=== PATIENT | male | born 1970 | race Caucasian/White ===

== ENCOUNTER 2020-06-23 08:25 | Emergency (ER) | payer OTHER, SELFPAY ==
--- NOTE | ~2020-06-23 | XR_ITS ---
EXAMINATION: XR chest 2V DATE: 06/23/2020 09:13 INDICATION: Cough and congestion TECHNIQUE: PA and lateral views of the chest were obtained. COMPARISON: Chest radiograph dated 05/03/2019 FINDINGS: The lungs remain clear with no focal airspace opacities, pulmonary edema, pleural effusion or pneumot horax. The cardiomediastinal silhouette is normal. Mild thoracic spondylosis. IMPRESSION: 1. No acute cardiopulmonary disease. Reviewed, dictated and finalized at location A. PROCESS TECHNICIAN
[2020-06-23 08:40] VITALS: BP 126/68; PULSE 95; RESP 16; TEMP 36.7; O2SAT 99
--- NOTE | 2020-06-23 08:59 | ED.GENADULT ---
HPI - General Adult General Chief complaint: Upper Respiratory Infection Stated complaint: COUGH/TIGHT CHEST/NASAL CONGESTION Source: patient Mode of arrival: ambulatory Limitations: no limitations History of Present Illness HPI narrative: Patient presents for evaluation of respiratory symptoms for the last 3 days. Reports productive cough of clear sputum with mild intermittent shortness of breath, sinus congestion, green rhinorrhea, a tickle in the throat , chills, fatigue, chest tightness and body aches. He denies fever, nausea, vomiting, diarrhea. States he was told in the past he has mild COPD. His and son both have similar symptoms. He states that they were evaluated here in both of the rapid Covid test were negative. He does smoke 1 pack/day. He has been using Sally, Flonase, NyQuil to assist with his symptoms. Related Data Home Medications Medication Instructions Recorded Confirmed alprazolam 05/03/19 gabapentin 05/03/19 pantoprazole 40 mg PO DAILY 05/03/19 06/23/20 sertraline 100 mg PO DAILY 05/03/19 06/23/20 tramadol 50 mg PO Q4-6H PRN 05/03/19 06/23/20 Allergies Allergy/AdvReac Type Severity Reaction Status Date / Time AMOXICILLIN TRIHYDRATE Allergy Mild VOMITING Uncoded 06/23/20 08:31 AND DIARRHEA POTASSIUM CLAVULANATE Allergy Mild VOMITING Uncoded 06/23/20 08:31 AND DIARRHEA Review of Systems Review of Systems: Narrative: CONSTITUTIONAL: Denies fever and sweats. EYES: Denies visual changes, redness, or discharge. ENT: Reports sinus congestion with green rhinorrhea and a tickle in the throat . CARDIOVASCULAR: Reports chest tightness. Denies chest pain, palpitations, or edema. RESPIRATORY: Reports productive cough of clear sputum with occasional mild shortness of breath GASTROINTESTINAL: Denies abdominal pain, nausea, vomiting, or diarrhea. GENITOURINARY: Denies dysuria or hematuria. SKIN: Denies rash or itching. MUSCULOSKELETAL: Reports generalized body aches NEUROLOGIC: Reports headache and generalized fatigue. Denies dizziness. PSYCHIATRIC: Denies anxiety or depression. [facility] Past Medical History Medical History Allergic rhinitis Anxiety COPD (chronic obstructive pulmonary disease) Depression GERD (gastroesophageal reflux disease) Tobacco use Surgical History Surgical History H/O repair of rotator cuff History of carpal tunnel surgery History of lumbar spinal fusion History of tonsillectomy Family History Family History Mother Diabetes mellitus Dementia Father Mesothelioma Social History Social History Smoking packs per day: 1 Smoking cigarettes per day: 20.0 Smoking status: Current every day smoker Alcohol intake: never Substance use: never Living arrangements: with family Gender identity (if verbalized by the patient): Male Sexual Orientation (if Verbalized by the Patient): Straight or Heterosexual Spiritual care concerns: No Exam Narrative: Exam Narrative: GENERAL: Well-appearing, well-nourished, and in no acute distress. HEAD: Normocephalic, atraumatic. EYES: PERRLA and EOMI. ENT: Nares clear, no rhinorrhea or epistaxis. Mucous membranes moist. Oropharynx without tonsillar hypertrophy exudate or other lesions. Bilateral TMs pearly rangel nonbulging NECK: Supple. No adenopathy or masses. No carotid bruits or JVD CHEST: Clear to auscultation. No respiratory distress. No wheezes rales or rhonchi. Occasional cough noted HEART: Regular rate and rhythm. No murmur heard. Normal peripheral pulses. ABDOMEN: Soft, nontender, nondistended, normal active bowel sounds. EXTREMITIES: Normal range of motion. No edema. SKIN: Warm, dry, no rash. NEURO: No focal deficits. Alert and oriented x3. PSYCH: Normal mood and affect. Course Course Emergency [facility]
[2020-06-25 19:18] LABS: SARS-CoV-2 RNA PCR Negative
== END 2020-06-23 10:05 | disposition home or self-care (01) ==
PROVIDERS: Emergency Provider Nurse Practitioner; PCP Internal Medicine
DX: J00 Acute nasopharyngitis [common cold] (principal); J01.90 Acute sinusitis, unspecified; Z20.822 Contact with and (suspected) exposure to COVID-19; F17.210 Nicotine dependence, cigarettes, uncomplicated; F41.9 Anxiety disorder, unspecified; F32.9 Major depressive disorder, single episode, unspecified; J44.9 Chronic obstructive pulmonary disease, unspecified; K21.9 Gastro-esophageal reflux disease without esophagitis
CPT/HCPCS: 71046; 87081; 87426; 87804; 87880; 99213; C9803; G0463; U0003; U0005

== ENCOUNTER 2021-11-18 10:01 | Emergency (ER) | payer OTHER, SELFPAY ==
[2021-11-18 10:09] VITALS: BP 124/70; PULSE 98; RESP 16; TEMP 37.3; O2SAT 97
--- NOTE | 2021-11-18 10:35 | ED.URI ---
HPI - URI/Sore Throat General Chief Complaint: Upper Respiratory Infection Stated Complaint: Congestion/dizzy Time Seen by Provider: 11/18/21 10:13 Source: patient Mode of arrival: ambulatory Limitations: no limitations History of Present Illness HPI Narrative: Patient presents today complaining of 3-day history of headache, cough, body aches, chills and subjective fever. 2 of his sons tested positive yesterday for COVID-19, and he has had positive exposure. He has been taking Sally-D, which she takes year-round along with his tramadol that he takes on a daily basis as well. Neither of these are providing relief for his acute symptoms. He has not been vaccinated for COVID-19. He is a smoker. Related Data Home Medications Medication Instructions Recorded Confirmed alprazolam 0.5 mg tablet 0.5 mg PO TID 05/03/19 06/23/20 gabapentin 300 mg capsule 300 mg PO TID 05/03/19 06/23/20 pantoprazole 40 mg tablet,delayed 40 mg PO DAILY 05/03/19 06/23/20 release sertraline 100 mg tablet 100 mg PO DAILY 05/03/19 06/23/20 tramadol 50 mg tablet 50 mg PO Q4-6H PRN Pain 05/03/19 06/23/20 Allergies Allergy/AdvReac Type Severity Reaction Status Date / Time AMOXICILLIN TRIHYDRATE Allergy Mild VOMITING Uncoded 06/23/20 08:31 AND DIARRHEA POTASSIUM CLAVULANATE Allergy Mild VOMITING Uncoded 06/23/20 08:31 AND DIARRHEA Review of Systems Review of Systems: CONSTITUTIONAL: Denies sweats.+ Body aches, chills, subjective fever EYES: Denies visual changes, redness, or discharge. ENT: Denies rhinorrhea, sore throat, or otalgia.+ Congestion CARDIOVASCULAR: Denies chest pain, palpitations, or edema. RESPIRATORY: Denies cough or dyspnea. GASTROINTESTINAL: Denies abdominal pain, nausea, vomiting, or diarrhea. GENITOURINARY: Denies dysuria or hematuria. SKIN: Denies rash, itching, or wounds. MUSCULOSKELETAL: Denies back pain, joint pain, or myalgia. NEUROLOGIC: Denies numbness, tingling, or weakness.+ Headache PSYCH: Denies depression or anxiety. [facility] Past Medical History Medical History Allergic rhinitis Anxiety COPD (chronic obstructive pulmonary disease) Depression GERD (gastroesophageal reflux disease) Tobacco use Surgical History Surgical History (Reviewed 11/18/21 @ 10:36 by Marysol Joyce, [facility], ) H/O repair of rotator cuff History of carpal tunnel surgery History of lumbar spinal fusion History of tonsillectomy Family History Family History (Reviewed 11/18/21 @ 10:36 by Marysol Joyce, [facility], ) Mother Diabetes mellitus Dementia Father Mesothelioma Social History Social History (Reviewed 11/18/21 @ 10:36 by Marysol Joyce, [facility], ) Smoking packs per day: 1 Smoking cigarettes per day: 20.0 Smoking status: Current every day smoker Alcohol intake: never Substance use: never Gender identity (if verbalized by the patient): Male Sexual Orientation (if Verbalized by the Patient): Straight or Heterosexual Spiritual care concerns: No Comments At time of signature, I have reviewed and agree with nursing past medical, surgical, social and family history unless otherwise noted. Please see nursing chart for further information. There is no relevant family history pertinent to the presenting complaint Exam Narrative: GENERAL: Mildly ill-appearing, well-nourished, and in no acute distress. HEAD: Normocephalic, atraumatic. EYES: EOMI. No redness or drainage. Conjunctivae normal. ENT: Mucous membranes pink and moist. Nares clear. No rhinorrhea. TMs normal bilaterally. Throat normal. Uvula midline. NECK: Normal AROM. Supple. No lymphadenopathy. CHEST: No respiratory distress. Clear to auscultation. HEART: Regular rate and rhythm. No murmur appreciated. Normal peripheral pulses. EXTREMITIES: Normal range of motion. No edema. SKIN: Warm, dry, no rash. Capillary refill normal. Normal skin turgor. NEURO: No focal deficits. Alert and oriented x3. Gait steady. PSYCH:
== END 2021-11-18 10:49 | disposition home or self-care (01) ==
PROVIDERS: Emergency Provider Nurse Practitioner; PCP Internal Medicine
DX: B34.9 Viral infection, unspecified (principal); Z20.822 Contact with and (suspected) exposure to COVID-19; F17.210 Nicotine dependence, cigarettes, uncomplicated; J44.9 Chronic obstructive pulmonary disease, unspecified; K21.9 Gastro-esophageal reflux disease without esophagitis; F41.9 Anxiety disorder, unspecified; F32.A Depression, unspecified
CPT/HCPCS: 87426; 99213; C9803; G0463